=== PATIENT | female | born 1995 | race Hispanic/Latino ===

== ENCOUNTER 2019-06-26 19:34 | Emergency (ER) | payer OTHER ==
[~2019-06-26 19:34] MED LIST: ISOVUE-370 76%-LOCM 1 ML ONE
[2019-06-26 19:59] LABS: #Basophils 0.1 thou/uL (0.0-0.2); #Eosinphils 0.2 thou/uL (0.0-0.7); #Monocytes 0.8 thou/uL (0.11-0.59); #Neutrophils 7.6 thou/uL (1.40-6.50); %Basophils 0.7 % (0.0-1.0); %Lymphocytes 25.6 % (21.0-51.0); %Monocytes 6.9 % (0.0-10.0); %Neutrophils 64.9 % (42.0-75.0); Hemoglobin 12.5 g/dL (12.0-16.0); Mean Corpuscular HGB CONC 35.2 g/dL (32.0-36.0); Mean Corpuscular Hemoglobin 30.7 pg (27.0-31.0); Mean Corpuscular Volume 87.1 fL (78.0-98.0); Mean Platelet Volume 8.4 fL (7.4-10.4); Platelet Count 318 thou/uL (130-400); RBC Distribution Width 11.6 % (11.5-14.5); Red Blood Cell (RBC) Count 4.07 mill/uL (4.20-5.40); White Blood Cell (WBC) Count 11.6 thou/uL (4.8-10.8)
[2019-06-26] MEDS ORDERED: Morphine 4 MG/ML VIAL ONE (20:01)
[2019-06-26] MEDS ORDERED: Ondansetron PF 4 MG/2 ML Vial ONE ×2 (20:01→20:07)
[2019-06-26 20:05] LABS: Bilirubin Negative (Negative); Blood, Urine Negative (Negative); Clarity Clear (Clear); Glucose, Urine (Dipstick) Normal (Negative); Leukocyte Negative Leu/uL (Negative); Nitrite Negative (Negative); Protein, Urine (Dipstick) Negative (Neg-Trace); Urobilinogen Normal mg/dL (Less than 2)
[2019-06-26 20:06] LABS: Pregnancy Test - Urine (BHCG) Negative (Negative); Pregu Control Background? CLEAR/WHITE (CLR/WHITE); Pregu Control Bar Appear? YES (CONTROL BAR); Specific Gravity 1.003 (1.002-1.036)
[2019-06-26 20:23] LABS: ALT (SGPT) 19 U/L (8-55); AST (SGOT) 16 U/L (5-34); Albumin 4.2 g/dL (3.5-5.0); Alkaline Phosphatase 56 U/L (40-110); Anion Gap 12 mmol/L (10-20); BUN (Urea Nitrogen) 10 mg/dL (7.0-18.7); Bilirubin, Total 0.2 mg/dL (0.2-1.2); Calc. Creatinine Clearance 0 mL/min (70-130); Calcium 9.3 mg/dL (7.8-10.44); Carbon Dioxide 25 mmol/L (22-29); Chloride 103 mmol/L (98-107); Estimated GFR-MDRD 88; Globulin 3.2 g/dL (2.4-3.5); Glucose 95 mg/dL (70-105); Lipase 12 U/L (8-78); Potassium 3.6 mmol/L (3.5-5.1); Protein, Total 7.4 g/dL (6.0-8.3); Sodium 136 mmol/L (136-145)
--- NOTE | 2019-06-26 20:43 | ULT ---
EXAM: US Gallbladder RUQ CLINICAL HISTORY: Right upper quadrant pain. COMPARISON: None. FINDINGS: Pancreas: Pancreatic parenchyma is obscured by bowel gas Liver:Normal echotexture. No hepatic masses. No intrahepatic biliary dilatation. Contour of the hepat ic margin is maintained. Gallbladder: No sonographic evidence of cholelithiasis, gallbladder wall thickening or pericholecysti c fluid. Ellis's sign:Negative but the patient is medicated Portal Vein: Patent. Appropriate directional flow Bile ducts: Common bile duct diameter 0.3 cm Right kidney: No hydronephrosis. Right kidney measures 10 point cm in length. IMPRESSION: Unremarkable exam.
--- NOTE | 2019-06-26 21:30 | CT ---
EXAM: CT ABDOMEN AND PELVIS HISTORY: Abdominal pain. Right sided pain. COMPARISON: None. Procedure: Multiple contiguous axial images were obtained and a CT of the abdomen and pelvis with IV contrast. C oronal reformats were performed. FINDINGS: Lower Chest: within normal limits. Vessels: Normal caliber aorta Heart: Normal heart size Abdomen: Portal vein:Patent Gallbladder: No calcified gallstones. Normal caliber wall. Liver: within normal limits. Pancreas: within normal limits. Spleen: within normal limits. Adrenals: within normal limits. Kidneys: Symmetric enhancement. No obstructive uropathy. Peritoneum: No ascites or free air, no fluid collection. Bowel: Limited evaluation due to the lack of oral contrast administration. No evidence of bowel obstr uction. Ileocecal junction is unremarkable. Normal caliber appendix. Scattered fecal material in a nondistended, nondilated colon. Mesentery and Retroperitoneum: There are scattered upper normal mesenteric lymph nodes. Abdominal Wall: within normal limits. Pelvis: Reproductive Organs: Reproductive organs are unremarkable. 1.5 cm right ovarian follicle Pelvis: No mass, lymphadenopathy, free air or free fluid. Bladder: within normal limits. Bones: within normal limits. IMPRESSION: No evidence of acute intraabdominal\pelvic abnormality. Upper normal mesenteric lymph nodes. Correlat e for mesenteric lymphadenitis.
== END 2019-06-26 21:56 | disposition home or self-care (01) ==
LOC: ERS 19:34
DX: I88.0 Nonspecific mesenteric lymphadenitis (principal)
CPT/HCPCS: 36415; 74177; 76705; 80053; 81003; 81025; 83690; 85025; 96374; 96375; J2270; J2405; Q9966